=== PATIENT | female | born 1970 ===

== ENCOUNTER 2018-08-02 13:15 | Inpatient (IN) | payer OTHER ==
[~2018-08-02] VITALS: Ht 165.1 cm; Wt 92.1 kg
[2018-08-03] MEDS ORDERED: GABAPENTIN600 MG PO (10:04)
[2018-08-12] MEDS ORDERED: COLACE100 MG PO (11:43)
[2018-08-12] MEDS ORDERED: NEURONTIN800 MG PO (11:43)
[2018-08-12] MEDS ORDERED: AMOX-CLAV 875-1 EACH PO (11:44)
[2018-08-12] MEDS ORDERED: CLONAZEPAM1 MG PO (11:45)
[2018-08-12] MEDS ORDERED: PERCOCET 5-3251 EACH PO (11:45)
== END 2018-08-13 22:27 | disposition home or self-care (01) | DRG 460 ==
LOC: O/R 08-12 06:09 → SURH 08-12 06:09 → SURG 08-12 13:15 → SURH 08-12 19:03
PROVIDERS: Orthopaedic Surgery Orthopaedic Surgery of the Spine
PROC: 00NY0ZZ Release Lumbar Spinal Cord, Open Approach (ICD-10-PCS; 2018-08-12)
PROC: 0ST40ZZ Resection of Lumbosacral Disc, Open Approach (ICD-10-PCS; 2018-08-12)
PROC: 07DS3ZZ Extraction of Vertebral Bone Marrow, Percutaneous Approach (ICD-10-PCS; 2018-08-12)
PROC: 0SG30AJ Fusion of Lumbosacral Joint with Interbody Fusion Device, Posterior Approach, Anterior Column, Open Approach (ICD-10-PCS; principal; 2018-08-12 13:30)
DX: M47.27 Other spondylosis with radiculopathy, lumbosacral region (principal); M51.17 Intervertebral disc disorders with radiculopathy, lumbosacral region